=== PATIENT | male | born 1965 | race Caucasian/White ===

== ENCOUNTER → 2018-12-19 | Outpatient (REF) | payer OTHER ==
[2018-12-19 12:57] LABS: BASO # 0.1 10^3/uL (0.0-0.2); BASO % 0.7 % (0.0-1.0); EOS # 0.1 10^3/uL (0.0-0.5); EOS % 1.5 % (0.0-3.0); HEMATOCRIT 47.1 % (42.0-52.0); HEMOGLOBIN 14.6 g/dl (13.5-17.5); LYMPH # 2.1 10^3/uL (1.5-5.0); LYMPH % 25.7 % (24.0-44.0); MEAN CORPUSCULAR HEMOGLOBIN 29.7 pg (27.0-33.0); MEAN CORPUSCULAR VOLUME 95.7 fl (80.0-96.0); MONO # 0.7 10^3/uL (0.0-0.8); MONO % 8.7 % (0.0-5.0); NEUTROPHILS # 5.1 10^3/uL (1.5-8.5); PLATELET COUNT, AUTOMATED 256 10^3/uL (150-450); RED BLOOD COUNT 4.92 10^6/uL (4.30-6.10); WHITE BLOOD COUNT 8.1 10^3/uL (4.0-10.0)
[2018-12-19 13:25] LABS: ALBUMIN 3.7 GM/DL (3.2-5.2); ALT/SGPT 22 U/L (12-78); BLOOD UREA NITROGEN 14 MG/DL (7-18); CARBON DIOXIDE LEVEL 29 MEQ/L (21-32); CHLORIDE LEVEL 108 MEQ/L (98-107); CHOLESTEROL LEVEL 180 MG/DL (<200); CHOLESTEROL RISK RATIO 3.272 (<5); CREATININE FOR GFR 0.83 MG/DL (0.70-1.30); GLOMERULAR FILTRATION RATE > 60.0 (>56); GLUCOSE, FASTING 89 MG/DL (70-100); HDL CHOLESTEROL 55 MG/DL (>40); LDL CHOLESTEROL 111 MG/DL (<100); NON-HDL-C 125 MG/DL; POTASSIUM SERUM 5.2 MEQ/L (3.5-5.1); SODIUM LEVEL 142 MEQ/L (136-145); TOTAL PROTEIN 6.6 GM/DL (6.4-8.2); TRIGLYCERIDES LEVEL 68 MG/DL (<150)
== END ==
LOC: M SFHCADAM 10:13
PROVIDERS: ATTEND Physician Assistant Medical
DX: Z13.220 Encounter for screening for lipoid disorders (principal); Z80.0 Family history of malignant neoplasm of digestive organs; Z13.0 Encounter for screening for diseases of the blood and blood-forming organs and certain disorders involving the immune mechanism

== ENCOUNTER → 2019-02-03 | Outpatient (CLI) | payer OTHER ==
--- NOTE | 2019-02-03 09:41 | REP ---
Noncontrast CT chest: Low-dose cancer screening study. History: Nicotine dependence. No comparison imaging. CT findings: There is an 8 mm noncalcified pulmonary nodule in the right lower lobe on page 48 of 100 series 201 of today's study. This merits further evaluation. No other significant pulmonary nodule is appreciated. No lung mass or infiltrate is seen. Study is otherwise unremarkable. Impression: Lung RADS 4A category study. 3-month followup chest CT versus PET-CT study could be considered. Probability of malignancy in this category is considered to be 5-15%. Electronically Signed by Emeka Meyers MD 02/03/2019 09:32 A
== END ==
LOC: M RAD 07:51
PROVIDERS: ATTEND Physician Assistant Medical
DX: R91.1 Solitary pulmonary nodule (principal); F17.210 Nicotine dependence, cigarettes, uncomplicated

== ENCOUNTER 2019-03-09 10:34 | Day surgery (SDC) | payer OTHER ==
[~2019-03-09] VITALS: Ht 172.7 cm; Wt 74.4 kg
[~2019-03-09 10:34] MED LIST: LIDOCAINE 2% INJ 100 MG/5 ML SDV (FOR ANES.) As Ordered ONE; NS 1,000 ML IV ONE
[2019-03-09] MEDS ORDERED: PROPOFOL 200 MG/20 ML VIAL As Ordered ONE (11:59)
--- NOTE | 2019-03-09 13:23 | ROOR ---
Patient Name: Elvin Castro Procedure Date: 03/09/2019 12:36 PM Date of : 1965 Age: 53 Room: [facility] Gender: Male Note Status: Finalized Procedure: Colonoscopy Indications: Colon cancer screening in patient at increased risk: Family history of colorectal cancer in multiple 2nd degree relatives, This is the patient's first colonoscopy Providers: Jovanny Malik MD Referring MD: SUHA Sandoval Requesting Provider: Medicines: Monitored Anesthesia Care Complications: No immediate complications. Procedure: Pre-Anesthesia Assessment: - Prior to the procedure, a History and Physical was performed, and patient medications and allergies were reviewed. The patient is competent. The risks and benefits of the procedure and the sedation options and risks were discussed with the patient. All questions were answered and informed consent was obtained. Patient identification and proposed procedure were verified by the physician, the nurse and the anesthesiologist in the procedure room. Mental Status Examination: alert and oriented. Airway Examination: normal oropharyngeal airway and neck mobility. Prophylactic Antibiotics: The patient does not require prophylactic antibiotics. Prior Anticoagulants: The patient has taken no previous anticoagulant or antiplatelet agents. ASA Grade Assessment: II - A patient with mild systemic disease. After reviewing the risks and benefits, the patient was deemed in satisfactory condition to undergo the procedure. The anesthesia plan was to use monitored anesthesia care (MAC). Immediately prior to administration of medications, the patient was re-assessed for adequacy to receive sedatives. The heart rate, respiratory rate, oxygen saturations, blood pressure, adequacy of pulmonary ventilation, and response to care were monitored throughout the procedure. The physical status of the patient was re-assessed after the procedure. The Colonoscope was introduced through the anus and advanced to the cecum, identified by appendiceal orifice and ileocecal valve. The colonoscopy was performed without difficulty. The patient tolerated the procedure well. The quality of the bowel preparation was excellent. Findings: The perianal and digital rectal examinations were normal. A 4 mm polyp was found in the cecum. The polyp was sessile. The polyp was removed with a jumbo cold forceps. Resection and retrieval were complete. Estimated blood loss was minimal. The pathology specimen was placed into Bottle Number 1. The exam was otherwise without abnormality. Impression: - One 4 mm polyp in the cecum, removed with a jumbo cold forceps. Resected and retrieved. - The examination was otherwise normal. Recommendation: - Discharge patient to home. - Resume previous diet. - Continue present medications. - Await pathology results. - If the pathology report reveals adenomatous tissue, then repeat the colonoscopy for surveillance in 5 years. Jovanny Malik MD Jovanny Malik MD 03/09/2019 1:23:04 PM Electronically signed by Jovanny Malik MD Number of Addenda: 0 Note Initiated On: 03/09/2019 12:36 PM Estimated Blood Loss: Estimated blood loss was minimal.
[2019-03-09 13:40] VITALS: BP 107/66
== END 2019-03-09 13:42 | disposition home or self-care (01) ==
LOC: M OPP 10:34
PROVIDERS: ATTEND Surgery
DX: Z12.11 Encounter for screening for malignant neoplasm of colon (principal); Z80.0 Family history of malignant neoplasm of digestive organs; D12.0 Benign neoplasm of cecum; F17.210 Nicotine dependence, cigarettes, uncomplicated

== ENCOUNTER → 2019-06-02 | Outpatient (CLI) | payer OTHER ==
--- NOTE | 2019-06-02 15:39 | REP ---
CT of the chest without IV contrast for pulmonary nodule. Follow-up: Comparison is the low-dose lung screening CT of the chest dated 02/03/2019. On the comparison study there was an 8 mm noncalcified right lower lobe lung nodule. On the study today this nodule is again identified in the right lower lobe on image 55 and again measures 8 mm. The lack of interval change converts this lesion to a category II lesion with the probability of malignancy less than 1%. There are no other lung nodules or masses. There are no infiltrates or pleural effusions. There is no mediastinal or axillary lymph node enlargement. The study is insensitive for hilar lymph node enlargement in the absence of IV contrast. Impression: The 8 mm right lower lobe lung nodule is unchanged in size. This converts this lesion to a category II lesion with the probability of malignancy less than 1%. There are no other lung nodules. Recommend the patient return to annual low-dose lung screening CT of the chest. Electronically Signed by Silvio Bender MD 06/02/2019 03:30 P
== END ==
LOC: M RAD 12:23
PROVIDERS: ATTEND Internal Medicine Pulmonary Disease
DX: R91.1 Solitary pulmonary nodule (principal)

== ENCOUNTER → 2020-05-04 | Outpatient (CLI) | payer SELFPAY | LOC: M LABSMTC 09:50 | PROVIDERS: ATTEND Pediatrics | DX: Z20.822 Contact with and (suspected) exposure to COVID-19 (principal) ==

== ENCOUNTER → 2020-05-19 | Outpatient (CLI) | payer SELFPAY | LOC: M LABSMTC 08:39 | PROVIDERS: ATTEND Pediatrics | DX: Z11.52 Encounter for screening for COVID-19 (principal) ==

== ENCOUNTER → 2020-06-07 | Outpatient (CLI) | payer OTHER ==
--- NOTE | 2020-06-07 08:12 | REP ---
INDICATION: NICOTINE DEPENDENCE COMPARISON: 02/03/2019, 06/02/2019 TECHNIQUE: Axial noncontrast images from the thoracic inlet to the upper abdomen using low-dose lung screening technique (LDCT). FINDINGS: Bilateral lung abbott are well aerated and relatively symmetric. The 8 mm noncalcified nodule in the periphery of the right lower lobe remains stable. No new significant consolidation, nodule or mass lesion appreciated. No pleural effusion. No pneumothorax. Tracheobronchial tree is patent. IMPRESSION: Lung-RADS category 2. Stable 8 mm right lower lobe nodule. Management recommendations include annual low-dose CT surveillance. <Electronically signed by Ludwig Muller > 06/07/20 0819
== END ==
LOC: M RAD 07:34
PROVIDERS: ATTEND Internal Medicine Pulmonary Disease
DX: F17.200 Nicotine dependence, unspecified, uncomplicated (principal)